=== PATIENT | female | born 1950 | race Caucasian/White ===

== ENCOUNTER → 2020-08-04 | Outpatient (CLI) | payer OTHER, MEDICARE ==
[~2020-08-04] MED LIST: ALENDRONATE; ASPIR 8181 MG PO; BACTRIM DS TAB1 EACH PO; BIOTIN10000 MC1 PO; CIPROFLOXACIN500 M1 PO; EFFEXOR 5050 MG/1 T1 PO; EFFEXOR75 MG PO; GLUCOSAMINE HC500 MG PO; LIPITOR10 MG PO; MULTIVITAMINS1 EACH PO; OCEAN BLUE OME350 MG PO; RHINOCORT AQUA8.6 GM NS; VENLAFAXINE HCL25 MG PO; VITAMIN D31000 UNI2 PO
== END ==
LOC: NUC 08:11
PROVIDERS: ATTEND Nurse Practitioner
DX: M81.0 Age-related osteoporosis without current pathological fracture (principal); M85.88 Other specified disorders of bone density and structure, other site